=== PATIENT | male | born 1985 | race Caucasian/White ===

== ENCOUNTER 2016-10-30 16:41 | Emergency (ER) | payer SELFPAY ==
[2016-10-30 16:42] VITALS: BMI 25.8
[2016-10-30 16:58] VITALS: PULSE 90; RESP 20; TEMP 98; O2SAT 98
[2016-10-30] MEDS ORDERED: Oxycodone/Acetaminophen 5/325 mg Tab PO STA (17:26)
--- NOTE | 2016-10-30 17:30 | ED PDOC ---
HPI:Nausea, Vomiting, Diarrhea Time Seen by Provider: 10/30/16 16:53 Chief Complaint (Nursing): Abnormal Skin Integrity Chief Complaint (Provider): Rectal Pain/Hemorrhoid History Per: Patient History/Exam Limitations: no limitations Onset/Duration Of Symptoms: Days (years), Worse Since (x2 weeks) Current Symptoms Are (Timing): Still Present Have you had recent travel within the past 21 days to any of the following countries: [place], [place], [place] or [place]?: No Severity: Moderate Associated Symptoms: Constipation (with intermittently blood streaked stool but no ritesh hematochezia). denies: Fever, Vomiting Additional Complaint(s): Amilcar Tom is a 31 year old male, with a past medical history inclusive of hemorrhoids (x years), who presents to the ED on 10/30/16 with complaints of moderately exacerbated rectal pain that he has experienced x2 weeks. Associated constipation also reported in addition to some intermittently blood streaked stool. Denies fever, vomiting or outright hematochezia. Normal appetite. Has previously medicated with Rx stool softeners, creams and percocet with relief, last time being as of September 2016 at [facility] [place]. Of note, patient reports having been unable to follow up with a surgeon secondary to insurance issues, though he states that he has been cleared for Medicaid and that he is due to receive his card in 2 weeks time. PMD: none Past Medical History Reviewed: Historical Data, Nursing Documentation, Vital Signs Vital Signs: Last Vital Signs Temp 98 F 10/30/16 16:55 Pulse 90 10/30/16 16:55 Resp 20 10/30/16 16:55 BP 149/107 H 10/30/16 16:55 Pulse Ox 98 10/30/16 16:55 - Medical History PMH: Hypercholesterolemia Denies: Depression - Surgical History Surgical History: No Surg Hx - Family History Family History: States: Unknown Family Hx - Social History Current smoker - smoking cessation education provided: Yes Alcohol: None Drugs: Denies - Home Medications Home Medications: Ambulatory Orders Medication Instructions Recorded Acetaminophen/Codeine Phosph 1 tab PO Q6 PRN #10 tab 11/20/12 [Acetaminophen and Codeine Phosphate 300 mg-30] Cyclobenzaprine HCl [Flexeril] 10 mg PO Q8 PRN #10 tab 11/20/12 Ibuprofen [Motrin] 600 mg PO Q6 PRN #20 tab 11/20/12 Docusate [Colace] 100 mg PO Q12H PRN #10 cap 08/14/16 Hydrocortisone 2.5% (Rectal) 30 applic [place] BID #1 tube 08/14/16 [Anusol-HC] Ibuprofen [Motrin Tab] 800 mg PO Q6H PRN #20 tab 08/14/16 oxyCODONE/Acetaminophen [Percocet 1 ea PO Q6H PRN #15 tab 08/14/16 5/325 mg Tab] Hard Fat/Phenylephrine [place] 1 sup RC Q4 PRN #30 sup 10/30/16 [Anusol Suppository] Ibuprofen [Motrin Tab] 600 mg PO Q8 PRN #60 tab 10/30/16 Polyethylene Glycol 3350 [Miralax] 17 gm PO DAILY PRN #1 bottle 10/30/16 oxyCODONE/Acetaminophen [Percocet 1 tab PO QID PRN #15 tab 10/30/16 5/325 mg Tab] - Allergies Allergies/Adverse Reactions: Allergies Allergy/AdvReac Type Severity Reaction Status Date / Time No Known Allergies Allergy Verified 08/13/16 23:05 Review of Systems Constitutional: Negative for: Fever Gastrointestinal: Positive for: Rectal Pain (worse x2 weeks). Negative for: Vomiting Physical Exam - Reviewed Nursing Documentation Reviewed: Yes Vital Signs Reviewed: Yes - Physical Exam Appears: Positive for: Non-toxic, In Acute Distress (moderate acute painful distress) Skin: Positive for: Warm, Dry Gastrointestinal/Abdominal: Positive for: Normal Exam, Soft. Negative for: Tenderness ((-) Jacob's/McBurney's), Mass, Guarding, Rebound Back: Positive for: Normal Inspection. Negative for: L CVA Tenderness, R CVA Tenderness Rectal: Positive for: Hemorrhoids (small, tender, fleshy, intact/nonthrombosed hemorrhoid; no signs of bleeding), Other (Exam chaperoned by Shannan Pathak RN) Neurologic/Psych: Positive for: Alert, Oriented - ECG O2 Sat by Pulse Oximetry: 98 (RA) Pulse Ox Interpretation: Normal Medical Decision Making Medical Decision Makin:53 Initial Impression: hemorrhoid Initial Plan: * Percocet 1 tab PO * Reevaluation 17:27 Upon provider reevaluation patient reports that he is feeling better. He is medically stable and requires no further treatment in the ED at this time, will discharge home with Rx for an Anusol suppository, Miralax, Motrin 600mg and Percocet. Counseling was provided and all questions answered regarding diagnosis and given prescriptions. Patient strongly advised to follow up with referred general surgeon as soon as he is able. There is agreement to discharge plan, return for acute worsening of symptoms. Clinical Impression: hemorrhoid Scribe Attestation: Documented by Wilma Becker, acting as a scribe for Sindy Juarez MD. Provider Scribe Attestation: All medical record entries made by the Scribe were at my direction and personally dictated by me. I have reviewed the chart and agree that the record accurately reflects my personal performance of the history, physical exam, medical decision making, and the department course for this patient. I have also personally directed, reviewed, and agree with the discharge instructions and disposition. Disposition - Clinical Impression Clinical Impression: Hemorrhoids - Patient ED Disposition Is Patient to be Admitted: No Counseled Patient/Family Regarding: Diagnosis, Need For Followup, Rx Given - Disposition Disposition: Routine/Home Disposition Time: 17:27 Condition: FAIR Additional Instructions: FOLLOW UP WITH SURGERY SOON POSSIBLE Prescriptions: Hard Fat/Phenylephrine [place] [Anusol Suppository] 1 sup RC Q4 PRN #30 sup PRN Reason: RECTAL PAIN Polyethylene Glycol 3350 [Miralax] 17 gm PO DAILY PRN #1 bottle PRN Reason: Constipation Ibuprofen [Motrin Tab] 600 mg PO Q8 PRN #60 tab PRN Reason: Pain, Moderate (4-7) oxyCODONE/Acetaminophen [Percocet 5/325 mg Tab] 1 tab PO QID PRN #15 tab PRN Reason: Pain Instructions: Hemorrhoids (ED)
[2016-10-30] MEDS ORDERED: Oxycodone/Acetaminophen 5/325 mg Tab ONE (17:44)
[2016-10-30 17:47] VITALS: BP 133/86
== END 2016-10-30 18:29 | disposition home or self-care (01) ==
LOC: H.ER 16:41
DX: K64.9 Unspecified hemorrhoids (principal)

== ENCOUNTER 2018-02-23 23:10 | Emergency (ER) | payer SELFPAY ==
[2018-02-23 23:10] VITALS: BMI 25.8
[2018-02-23 23:13] VITALS: BP 136/79; PULSE 68; TEMP 98; O2SAT 100
--- NOTE | 2018-02-24 03:51 | ED PDOC ---
HPI: General Adult Time Seen by Provider: 02/23/18 23:21 Chief Complaint (Nursing): Medical Clearance Chief Complaint (Provider): Medical Clearance History Per: Patient History/Exam Limitations: no limitations Additional Complaint(s): Amilcar Tom is a 32 year old male with a past medical history of hypercholesterolemia and hemorrhoids who is here under police custody for medical and psychiatric clearance. Patient offers no medical complaints at this time and denies any homicidal or suicidal ideation and also denies any drug or alcohol abuse. PMD: none provided Past Medical History Reviewed: Historical Data, Nursing Documentation, Vital Signs Vital Signs: Last Vital Signs Temp 98.0 F 02/23/18 23:12 Pulse 68 02/23/18 23:12 Resp BP 136/79 02/23/18 23:12 Pulse Ox 100 02/24/18 03:51 - Medical History PMH: Hypercholesterolemia Denies: Depression Other PMH: hemorrhoids - Surgical History Surgical History: No Surg Hx - Family History Family History: States: Unknown Family Hx - Social History Current smoker - smoking cessation education provided: Yes Alcohol: Social Drugs: Denies - Home Medications Home Medications: Ambulatory Orders Medication Instructions Recorded Acetaminophen/Codeine Phosph 1 tab PO Q6 PRN #10 tab 11/20/12 [Acetaminophen and Codeine Phosphate 300 mg-30] Cyclobenzaprine HCl [Flexeril] 10 mg PO Q8 PRN #10 tab 11/20/12 Ibuprofen [Motrin] 600 mg PO Q6 PRN #20 tab 11/20/12 Docusate [Colace] 100 mg PO Q12H PRN #10 cap 08/14/16 Hydrocortisone 2.5% (Rectal) 30 applic [place] BID #1 tube 08/14/16 [Anusol-HC] Ibuprofen [Motrin Tab] 800 mg PO Q6H PRN #20 tab 08/14/16 oxyCODONE/Acetaminophen [Percocet 1 ea PO Q6H PRN #15 tab 08/14/16 5/325 mg Tab] Hard Fat/Phenylephrine [place] 1 sup RC Q4 PRN #30 sup 10/30/16 [Anusol Suppository] Ibuprofen [Motrin Tab] 600 mg PO Q8 PRN #60 tab 10/30/16 Polyethylene Glycol 3350 [Miralax] 17 gm PO DAILY PRN #1 bottle 03/17/17 oxyCODONE/Acetaminophen [Percocet 1 tab PO QID PRN #15 tab 10/30/16 5/325 mg Tab] - Allergies Allergies/Adverse Reactions: Allergies Allergy/AdvReac Type Severity Reaction Status Date / Time No Known Allergies Allergy Verified 08/13/16 23:05 Review of Systems ROS Statement: Except As Marked, All Systems Reviewed And Found Negative Constitutional: Positive for: Other (no medical complaints) Psych: Negative for: Suicidal ideation, Other (homicial ideation) Physical Exam - Reviewed Nursing Documentation Reviewed: Yes Vital Signs Reviewed: Yes - Physical Exam Appears: Positive for: Well, Non-toxic, No Acute Distress Head Exam: Positive for: ATRAUMATIC, NORMAL INSPECTION, NORMOCEPHALIC Skin: Positive for: Normal Color, Warm, DRY Eye Exam: Positive for: EOMI, Normal appearance, PERRL ENT: Positive for: Normal ENT Inspection Neck: Positive for: Normal, Painless ROM, Supple Cardiovascular/Chest: Positive for: Regular Rate, Rhythm. Negative for: Murmur Respiratory: Positive for: Normal Breath Sounds. Negative for: Respiratory Distress Gastrointestinal/Abdominal: Positive for: Normal Exam, Soft. Negative for: Tenderness Back: Positive for: Normal Inspection. Negative for: L CVA Tenderness, R CVA Tenderness, Vertebral Tenderness Extremity: Positive for: Normal ROM. Negative for: Deformity, Swelling Neurologic/Psych: Positive for: Alert, Oriented. Negative for: Motor/Sensory Deficits - ECG O2 Sat by Pulse Oximetry: 100 (RA) Pulse Ox Interpretation: Normal Medical Decision Making Medical Decision Making: Time: 23:52 --32 year old male under police custody brought here for medical and psychiatric clearance. --Patient s alert and oriented x3. He is calm and cooperative. --He has no other medical complaints at this time 00:00 --Upon provider evaluation, patient is stable and requires no treatment in the Ed at this time. Patient is stable for discharge. Scribe Attestation: Documented by, Aurora Moralez acting as a scribe for Feliciano Browning MD. Provider Scribe Attestation: All medical record entries made by the Scribe were at my direction and personally dictated by me. I have reviewed the chart and agree that the record accurately reflects my personal performance of the history, physical exam, medical decision making, and the department course for this patient. I have also personally directed, reviewed, and agree with the discharge instructions and disposition. Disposition - Clinical Impression Clinical Impression: Medical clearance for incarceration - Disposition Disposition: Discharged/Transfer to Law Enforcement Disposition Time: 00:00 Condition: STABLE Additional Instructions: Medically and psychiatrically cleared for incarceration. Instructions: General (DC) Forms: [employer] ([place])
== END 2018-02-23 23:57 ==
LOC: H.ER 23:10
DX: Z02.89 Encounter for other administrative examinations (principal); Z00.8 Encounter for other general examination; F17.200 Nicotine dependence, unspecified, uncomplicated; E78.00 Pure hypercholesterolemia, unspecified